=== PATIENT | female | born 1980 | race African-American/Black ===

== ENCOUNTER 2018-09-28 10:22 | Emergency (ER) | payer MEDICAID ==
[~2018-09-28] VITALS: Ht 165.1 cm; Wt 165.0 kg
[~2018-09-28 10:22] MED LIST: BENA10TA10 PO; METF-416 PO
[2018-09-28] MEDS ORDERED: ACETAMINOPHEN WITH CODEINE 300/30MG TABLET PO STA (10:43)
[2018-09-28 11:34] LABS: BASOPHILS % 0.5 % (0.0-2.0); EOSINOPHILS % 1.6 % (0.0-5.0); HEMOGLOBIN. 14.2 g/dL (12.0-16.0); MEAN CORPUSCULAR HEMOGLOBIN 29.1 pg (28.0-32.0); MEAN CORPUSCULAR VOLUME 86.3 fL (81.0-99.0); MEAN PLATELET VOLUME 11.4 fl (7.4-10.4); MONOCYTES % 7.8 % (2.0-8.0); NEUTROPHILS % 65.1 % (40.0-76.0); PLATELET 182 x1000/uL (130-400); RED BLOOD CELL COUNT 4.86 mill/uL (4.2-5.4); RED CELL DISTRIBUTION WIDTH 15.3 % (11.6-14.6)
[2018-09-28 11:45] LABS: CHLORIDE 102 mEq/L (98-107)
[2018-09-28 12:31] LABS: CLARITY URINE TURBID (CLEAR); COLOR URINE YELLOW (YELLOW); KETONES URINE TRACE (NEGATIVE); LEUKOCYTE ESTERASE URINE TRACE (NEGATIVE); NITRITE URINE POSITIVE (NEGATIVE); OCCULT BLOOD URINE 3+ (NEGATIVE); PROTEIN URINE 1+ (NEGATIVE); SPECIFIC GRAVITY URINE 1.021 (1.005-1.030); UROBILINOGEN URINE 0.2 E.U./dL (0.2-1.0)
[2018-09-28 13:02] VITALS: BP 132/91
== END 2018-09-28 13:05 | disposition home or self-care (01) ==
LOC: ER 10:22
DX: R07.9 Chest pain, unspecified (principal); N30.90 Cystitis, unspecified without hematuria; E11.9 Type 2 diabetes mellitus without complications; I10 Essential (primary) hypertension; Z88.0 Allergy status to penicillin
CPT/HCPCS: 36415; 71045; 81025; 84484; 85379; 93005; 99284

== ENCOUNTER 2020-01-14 19:30 | Emergency (ER) | payer MEDICAID, OTHER ==
[~2020-01-14] VITALS: Ht 167.6 cm; Wt 127.0 kg
[~2020-01-14 19:30] MED LIST changes: -BENA10TA10 PO; +BENA10TA74 PO
[2020-01-14] MEDS ORDERED: KETOROLAC 30MG/ML VIAL IV ONE (23:00)
[2020-01-14] MEDS ORDERED: TRAMADOL 50MG TABLET PO ONE (23:00)
[2020-01-14] MEDS ORDERED: LORAZEPAM 1MG TABLET PO ONE (23:30)
[2020-01-15 00:22] LABS: BASOPHILS % 0.3 % (0.0-2.0); EOSINOPHILS % 2.4 % (0.0-5.0); HEMATOCRIT. 25.9 % (36.0-48.0); HEMOGLOBIN. 8.7 g/dL (12.0-16.0); LYMPHOCYTES % 19.1 % (20.0-50.0); MEAN CORPUSCULAR HEMOGLOBIN 31.2 pg (28.0-32.0); MEAN CORPUSCULAR VOLUME 92.7 fL (81.0-99.0); MEAN PLATELET VOLUME 9.5 fl (7.4-10.4); MONOCYTES % 8.2 % (2.0-8.0); PLATELET 208 x1000/uL (130-400); RED BLOOD CELL COUNT 2.79 mill/uL (4.2-5.4); RED CELL DISTRIBUTION WIDTH 19.8 % (11.6-14.6)
[2020-01-15 00:28] LABS: CHLORIDE 108 mEq/L (98-107)
[2020-01-15] MEDS ORDERED: CLONIDINE 0.3MG TABLET PO ONE (00:45)
[2020-01-15] MEDS ORDERED: CLONIDINE 0.2MG TABLET PO SCH (00:45)
[2020-01-15 01:52] VITALS: BP 141/107
== END 2020-01-15 02:10 | disposition home or self-care (01) ==
LOC: ER 19:30
DX: E11.42 Type 2 diabetes mellitus with diabetic polyneuropathy (principal); I16.0 Hypertensive urgency; Z79.84 Long term (current) use of oral hypoglycemic drugs; Z79.899 Other long term (current) drug therapy
CPT/HCPCS: 36415; 80048; 85025; 96374; 99284; J1885; Z7610